=== PATIENT | male | born 1980 | race Two or more races ===

== ENCOUNTER 2017-12-26 23:16 | Emergency (ER) | END 2017-12-27 06:00 | disposition home or self-care (01) ==

== ENCOUNTER 2018-03-21 14:05 | Emergency (ER) | END 2018-03-21 16:36 | disposition home or self-care (01) ==

== ENCOUNTER 2018-03-31 22:26 | Emergency (ER) | END 2018-04-01 02:24 | disposition home or self-care (01) ==

== ENCOUNTER 2018-08-23 22:35 | Emergency (ER) | payer OTHER ==
[~2018-08-23] VITALS: Ht 177.8 cm; Wt 119.8 kg
[~2018-08-23 22:35] MED LIST: ALLO100T PO; AMLO-147 PO; CARV12.579 PO; CEPH500C PO; ERGO500013 PO; FENO145T25 PO; LOSA25TA2 PO; SULF1TAB31 PO
[2018-08-23 22:37] VITALS: Ht 177.8 cm; Wt 119.8 kg
--- NOTE | 2018-08-24 00:40 | ERD ---
ER Documentation Chief Complaint Chief Complaint chest pain x 3 days HPI This is a 37-year-old male with a past medical history of hypertension, hyperlipidemia, chronic kidney disease, congestive heart failure related to an episode of sepsis, who is presenting for multiple complaints today. The patient reports a short transient episode of sharp aching left-sided nonradiating chest pain 3 days ago that went away. The patient has not had any chest pain since then, but he has felt generally unwell with intermittent episodes of tingling to his hands and feet bilaterally. The patient had an episode of palpitations and paresthesias this evening, which is ultimately what prompted him to come to the emergency department. The patient's palpitations have since resolved. The patient currently has no complaints. The patient denies feeling sick recently. The patient denies fever or chills. The patient has had no headache or vision changes. The patient does not endorse neck or back pain. The patient denies lightheadedness or dizziness. The patient has had no chest pain or trouble breathing. The patient denies nausea or vomiting. The patient denies abdominal pain. The patient denies changes to bowel movements or urination. The patient has had no focal deficits. The patient has had no weakness or numbness or tingling to the face or extremities. ROS All systems reviewed and are negative except as per history of present illness. Medications Home Meds Active Scripts Sulfamethoxazole/Trimethoprim* (Bactrim Ds* Tablet) 1 Each Tablet, 1 TAB PO BID for 10 Days, TAB Prov:CJ REHMAN DO 12/27/17 Reported Medications Atorvastatin Calcium* (Atorvastatin Calcium*) 20 Mg Tablet, 20 MG PO QHS, #30 TAB 08/24/18 Acetaminophen* (Acetaminophen*) 500 MG Extra Strength Tablet, 500 MG PO Q4H PRN for PAIN AND OR ELEVATED TEMP, TAB 08/24/18 Losartan Potassium* (Cozaar*) 25 Mg Tablet, 75 MG PO QAM, #90 TAB 12/27/17 Allopurinol* (Allopurinol*) 100 Mg Tablet, 100 MG PO BID, TAB 12/27/17 Carvedilol* (Carvedilol*) 12.5 Mg Tablet, 12.5 MG PO BID, #60 TAB 12/27/17 Fenofibrate Nanocrystallized* (Tricor*) 145 Mg Tablet, 145 MG PO DAILY, TAB 12/27/17 Ergocalciferol (Vitamin D2) (VITAMIN D2) 50,000 Unit Capsule, 01745 UNIT PO qfridays, CAP 12/27/17 Amlodipine Besylate* (Amlodipine Besylate*) 10 Mg Tablet, 10 MG PO DAILY, #30 TAB 12/27/17 Discontinued Reported Medications Cephalexin* (Cephalexin*) 500 Mg Capsule, 500 MG PO BID, #28 CAP 12/27/17 Allergies Allergies: Coded Allergies: No Known Allergy (Unverified , 08/24/18) PMhx/Soc History of Surgery: No Anesthesia Reaction: No Hx Neurological Disorder: No Hx Respiratory Disorders: No Hx Cardiac Disorders: Yes (HTN,diastolic heart failure) Hx Psychiatric Problems: No Hx Miscellaneous Medical Probl: Yes (CKD, endoscopy/colonoscopy procedures) Hx Alcohol Use: Yes (occasionally) Hx Substance Use: No Hx Tobacco Use: Yes (daily) FmHx Family History: No diabetes Physical Exam Vitals Vital Signs Date Temp Pulse Resp B/P (MAP) Pulse Ox O2 O2 Flow FiO2 Time Delivery Rate 08/24/18 98.0 85 18 116/79 99 Room Air 00:10 (91) 08/23/18 98.0 115 18 193/99 98 22:37 (130) Physical Exam Const: No apparent distress, well-developed, well-nourished Head: Normocephalic, Atraumatic Eyes: Normal Conjunctiva. Extraocular movements intact. Pupils equal, round and reactive to light ENT: Normal External Ears, Nose and Mouth. Neck: Full range of motion. No meningismus. Resp: Clear to auscultation bilaterally, No wheezes, rales or rhonchi Cardio: Regular rate and rhythm. No murmurs, rubs or gallops Abd: Soft, non tender, non distended. Normal bowel sounds Skin: No petechiae or rashes Back: No midline tenderness. No CVA tenderness Ext: No cyanosis, or edema Neur: Awake and alert, oriented 4. Cranial nerves intact. No facial droop. Normal strength, sensation and coordination. Psych: Normal Mood and Affect Result Diagram: 08/24/18 0103 08/24/18 0103 Results 24 hrs Laboratory Tests Test 08/24/18 01:03 White Blood Count 11.5 10^3/ul Red Blood Count 5.12 10^6/ul Hemoglobin 11.3 g/dl Hematocrit 37.5 % Mean Corpuscular Volume 73.2 fl Mean Corpuscular Hemoglobin 22.1 pg Mean Corpuscular Hemoglobin Concent 30.1 g/dl Red Cell Distribution Width 18.5 % Platelet Count 406 10^3/UL Mean Platelet Volume 9.8 fl Immature Granulocytes % 0.400 % Neutrophils % 73.0 % Lymphocytes % 18.4 % Monocytes % 6.0 % Eosinophils % 1.5 % Basophils % 0.7 % Nucleated Red Blood Cells % 0.0 /100WBC Immature Granulocytes # 0.050 10^3/ul Neutrophils # 8.4 10^3/ul Lymphocytes # 2.1 10^3/ul Monocytes # 0.7 10^3/ul Eosinophils # 0.2 10^3/ul Basophils # 0.1 10^3/ul Nucleated Red Blood Cells # 0.0 10^3/ul Sodium Level 141 mmol/L Potassium Level 4.0 mmol/L Chloride Level 104 mmol/L Carbon Dioxide Level 25 mmol/L Anion Gap 12 Blood Urea Nitrogen 22 mg/dl Creatinine 2.07 mg/dl Est Glomerular Filtrat Rate mL/min 36 mL/min Glucose Level 115 mg/dl Calcium Level 9.6 mg/dl Troponin I < 0.012 ng/ml Procedures/MDM MDM The patient's presentation warrants further investigation. Previous medical records, if available, were reviewed. LABS The patient's laboratory testing was obtained and reviewed. No emergent treatment was required unless described below. CBC: No E/o of systemic infection or severe anemia or thrombocytopenia. Mild microcytic anemia, not emergent BMP: No E/o severe acidosis or alkalosis or diabetic ketoacidosis. Elevated creatinine in line with chronic kidney disease. Troponin: No E/o acute ischemia EKG EKG read by me performed at 2242: Rate/Rhythm: Sinus tachycardia at 112 bpm Intervals: Normal Hawley: Normal Impression: No evidence of acute ischemia. Sinus tachycardia Repeat EKG read by me performed at 2352: Rate/Rhythm: Regular rate and rhythm at a rate of 92 bpm Intervals: Normal Hawley: Normal Impression: No evidence of ischemia or arrhythmia IMAGING Imaging and Radiology interpretation reviewed. CXR FINDINGS: LUNGS: Unremarkable. No consolidation. PLEURAL SPACE: Unremarkable. No pneumothorax. HEART: Unremarkable. No cardiomegaly. MEDIASTINUM: Unremarkable. BONES/JOINTS: Unremarkable. IMPRESSION: No acute abnormality demonstrated. Electronically viewed and signed by Michael Adams Physician Medical Manager on 08/24/2018 00:50 TREATMENT/DISPOSITION [facility] presents with a transient episode of chest pain a few days ago in addit ion to palpitations and paresthesias today. The patient's symptoms could be related to anxiety. The patient is anxious in the room. He was initially tachycardic, but once placed in the room and allowed to come down, his tachycardia resolved. This is a diagnosis of exclusion. Therefore, a cardiac workup was completed. The patient's chest xray does not reveal pneumonia or pneumothorax or pleural effusions or pulmonary edema. She does not have a widened mediastinum and does not have signs or symptoms concerning for thoracic aortic aneurysm or dissection. The patient does not have pneumomediastinum or signs concerning for esophageal tear or rupture. The patient has no clinical or radiographic signs of pericardial effusion or tamponade. The patient does not have pneumoperitoneum and I have decreased suspicion of viscus perforation as possible referred pain. Patient symptoms are not consistent with heart failure today. The patient does not have a diagnosis of COPD and is not wheezing today. The patient is not tachypneic or hypoxic. The patient is breathing comfortably and without pleuritic pain. The patient is not on hormonal therapy. The patient has no history of clotting or bleeding disorders. The patient has no calf tenderness. The patient has had no hemoptysis. I have decreased suspicion for PE. The patient's troponin and EKG are reassuring. I have low suspicion for acute coronary syndrome. The patient's HEART score is equal to or less than 3. This stratifies the pat ient into the low risk (<1%) group for an major adverse cardiac event within the next 30 days. Shared decision making was enacted. The risks and benefits of admission and discharge were discussed with the patient and it was ultimately decided that the patient would be discharged with close outpatient follow up and evaluation for functional testing within 72 hours. Upon reevaluation of the patient, symptoms have improved. No emergent diagnoses were identified. At this time, I feel that the patient stable for discharge. The patient was instructed to follow-up with a primary care physician in 1-3 days. The patient will also follow-up with his senior lead developer in 1-3 days. The patient will be given strict precautions with which to return to the emergency department. Prescriptions: None The patient's blood pressure was elevated at greater than 120/80 while in the emergency department. The patient was otherwise stable with no evidence of hypertensive urgency or emergency. The patient does not require admission for blood pressure control. I have discussed with the patient the risks of h ypertension. I have instructed the patient to return to the ER for any new or worsening symptoms including chest pain, shortness of breath, headache, blurred vision, confusion, nausea, vomiting or LOC. I have advised the patient to follow up with the primary care physician for outpatient monitoring and treatment for hypertension in 1-3 days. Disclaimer: Inadvertent spelling and grammatical errors are likely due to EHR/dictation software use and do not reflect on the overall quality of patient care. Note that the electronic time recorded on this note does not necessarily reflect the actual time of the patient encounter. Departure Diagnosis: Primary Impression: Nonspecific chest pain Additional Impressions: Palpitations Paresthesias Anxiousness Chronic kidney disease Chronic kidney disease stage: unspecified stage Qualified Codes: N18.9 - Chronic kidney disease, unspecified Microcytic anemia Condition: QUE Julien MD Aug 24, 2018 00:34
[2018-08-24] MEDS ORDERED: ATOR20TA38 PO (01:48)
[2018-08-24] MEDS ORDERED: ACET-141 PO (01:48)
[2018-08-24 03:00] VITALS: BP 109/68; PULSE 87; RESP 22
== END 2018-08-24 03:21 | disposition home or self-care (01) ==
LOC: E/R 22:35
DX: R07.9 Chest pain, unspecified (principal); R00.2 Palpitations; R20.2 Paresthesia of skin; F41.9 Anxiety disorder, unspecified; N18.9 Chronic kidney disease, unspecified; D50.9 Iron deficiency anemia, unspecified; I13.0 Hypertensive heart and chronic kidney disease with heart failure and stage 1 through stage 4 chronic kidney disease, or unspecified chronic kidney disease; I50.9 Heart failure, unspecified; Z87.891 Personal history of nicotine dependence
CPT/HCPCS: 36415; 71045; 80048; 84484; 85025; 93005; Z7502